=== PATIENT | female | born 1955 | race Caucasian/White ===

== ENCOUNTER 2020-02-29 19:27 | Inpatient (IN) | payer MEDICAID ==
[~2020-02-29] VITALS: Ht 157.5 cm; Wt 56.7 kg
[~2020-02-29 19:27] MED LIST: RISP1TAB27 PO; VALP250S23 PO
[2020-02-29 20:10] LABS: BASOPHILS % (AUTO) 1.1 % (0.0-2.0); HEMATOCRIT 39.4 % (36-46); HEMOGLOBIN 13.1 g/dL (12.0-16.0); LYMPHOCYTES % (AUTO) 25.1 % (22.0-44.0); MEAN CORPUSCULAR HEMOGLOBIN 29.4 pg (26.0-34.0); MEAN CORPUSCULAR HGB CONC 33.2 G/dL (31.0-37.0); MEAN CORPUSCULAR VOLUME 89 fL (80-100); MONOCYTES # (AUTO) 0.4 K/uL (0.1-1.0); MONOCYTES % (AUTO) 5.7 % (2.0-9.0); NEUTROPHILS # (AUTO) 5.2 K/uL (1.8-7.7); NEUTROPHILS % (AUTO) 67.1 % (40.0-70.0); PLATELET COUNT (AUTO) 246 K/uL (150-450); RED BLOOD CELL COUNT(AUTO) 4.44 MIL/uL (4.00-5.20); RED CELL DISTRIBUTION WIDTH 14.6 % (11.5-14.5)
[2020-02-29 20:32] LABS: ANION GAP 9 mmol/L (8-16); CALCIUM, TOTAL 9.4 mg/dL (8.8-10.5); CARBON DIOXIDE 30 mmol/L (22-29); CHLORIDE 104 mmol/L (98-107); CREATININE 0.94 mg/dL (0.60-1.30); GLOMERULAR FILTR. RATE CALC 60 mL/min (>60); GLUCOSE,RANDOM 105 mg/dL (70-110); POTASSIUM 3.4 mmol/L (3.5-5.1); SODIUM SERUM 143 mmol/L (136-145); UREA NITROGEN, BLOOD 16 mg/dL (7-18)
[2020-02-29 20:36] LABS: ALANINE AMINOTRANSFERASE 24 U/L (12-78); ALKALINE PHOSPHATASE 89 U/L (46-116); ASPARTATE AMINOTRANSFERASE 18 U/L (15-37); BILIRUBIN,TOTAL 0.3 mg/dL (0.1-1.0); TOTAL PROTEIN, SERUM 7.9 g/dL (6.4-8.2)
[2020-02-29 21:04] LABS: VALPROIC ACID < 3 mcg/mL (50-100)
[2020-02-29 21:25] LABS: AMPHET/METH SCREEN,URINE NEGATIVE (NEGATIVE); BARBITURATE SCREEN, URINE NEGATIVE (NEGATIVE); BENZODIAZEPINES SCREEN,URINE NEGATIVE (NEGATIVE); CANNABINOID SCREEN,URINE NEGATIVE (NEGATIVE); COCAINE SCREEN,URINE NEGATIVE (NEGATIVE); METHADONE SCREEN, URINE NEGATIVE (NEGATIVE); OPIATE SCREEN,URINE NEGATIVE (NEGATIVE)
[2020-02-29] MEDS ORDERED: ZOLPIDEM TARTRATE 10 MG TABLET PO PRN (21:30)
[2020-02-29] MEDS ORDERED: LORazepam 2 MG TABLET PO PRN (21:30)
[2020-02-29] MEDS ORDERED: HALOPERIDOL 5 MG TABLET PO PRN (21:30)
[2020-02-29 21:46] LABS: PHENCYCLIDINE SCREEN,URINE NEGATIVE (NEGATIVE)
[2020-03-01 02:40] VITALS: BP 124/77
[2020-03-01] MEDS ORDERED: ONDANSETRON HCL 4 MG TABLET PO PRN (06:45)
[2020-03-01] MEDS ORDERED: OMEPRAZOLE 20 MG CAPSULE PO PRN (06:45)
[2020-03-01] MEDS ORDERED: BENZOCAINE/MENTHOL LOZENGE MM PRN (06:45)
[2020-03-01] MEDS ORDERED: POTASSIUM CHLORIDE 20 MEQ ER TABLET PO ONE (06:45)
[2020-03-01] MEDS ORDERED: MAG HYDROX/AL HYDROX/SIMETH ES 30 ML SUSPENSION UDCUP PO PRN (06:45)
[2020-03-01] MEDS ORDERED: MAGNESIUM HYDROXIDE SUSPENSION 30 ML UDCUP PO PRN (06:45)
[2020-03-01] MEDS ORDERED: ALBUTEROL SULFATE HFA 90 MCG/PUFF 8 GM INHALER IH PRN (06:45)
[2020-03-01] MEDS ORDERED: DOCUSATE SODIUM 100 MG CAPSULE PO PRN (06:45)
[2020-03-01] MEDS ORDERED: CloNIDine HCL 0.1 MG TABLET PO PRN (06:45)
[2020-03-01] MEDS ORDERED: IBUPROFEN 600 MG TABLET PO PRN (06:45)
[2020-03-01] MEDS ORDERED: ACETAMINOPHEN 325 MG TABLET PO PRN (06:45)
[2020-03-01] MEDS ORDERED: LOPERAMIDE HCL 2 MG CAPSULE PO PRN (06:45)
[2020-03-01] MEDS ORDERED: BACITRACIN 28.4 GM OINTMENT TP PRN (06:45)
[2020-03-01] MEDS ORDERED: PETROLATUM,WHITE 28 GM JELLY TP PRN (06:45)
[2020-03-01] MEDS ORDERED: POTASSIUM CHLORIDE 10% 40 MEQ/30 ML LIQUID UDCUP PO ONE (07:30)
[2020-03-01 08:49] LABS: CHOL/HDL RATIO 4.1 (3.9-5.7)
[2020-03-01] MEDS: SERTRALINE HCL 50 MG TABLET PO SCH (12:09)
[2020-03-01 16:24] VITALS: BP 109/70
[2020-03-02 00:47] VITALS: BP 102/73
[2020-03-02 08:24] VITALS: BP 121/68
[2020-03-02] MEDS: SERTRALINE HCL 50 MG TABLET PO SCH (08:27)
[2020-03-02] MEDS: MULTIVITAMINS WITH MINERALS, THERAPEUTIC TABLET PO SCH (08:27)
[2020-03-02 16:11] VITALS: BP 110/65
[2020-03-02] MEDS: SIMVASTATIN 10 MG TABLET PO SCH (20:01)
[2020-03-03 04:56] VITALS: BP 110/69
[2020-03-03 08:31] VITALS: BP 116/70
[2020-03-03] MEDS: SERTRALINE HCL 50 MG TABLET PO SCH (08:39)
[2020-03-03] MEDS: MULTIVITAMINS WITH MINERALS, THERAPEUTIC TABLET PO SCH (08:39)
[2020-03-03 16:17] VITALS: BP 111/71
[2020-03-03] MEDS: SIMVASTATIN 10 MG TABLET PO SCH (20:41)
[2020-03-04 00:33] VITALS: BP 105/77
[2020-03-04 08:43] VITALS: BP 102/56
[2020-03-04] MEDS: SERTRALINE HCL 50 MG TABLET PO SCH (10:05)
[2020-03-04] MEDS: MULTIVITAMINS WITH MINERALS, THERAPEUTIC TABLET PO SCH (10:06)
[2020-03-04 16:25] VITALS: BP 100/62
[2020-03-04] MEDS: SIMVASTATIN 10 MG TABLET PO SCH (20:26)
[2020-03-05 00:24] VITALS: BP 101/74
[2020-03-05 08:24] VITALS: BP 104/61
[2020-03-05] MEDS: SERTRALINE HCL 50 MG TABLET PO SCH (08:58)
[2020-03-05] MEDS: MULTIVITAMINS WITH MINERALS, THERAPEUTIC TABLET PO SCH (08:58)
[2020-03-05 16:26] VITALS: BP 110/62
[2020-03-05] MEDS: SIMVASTATIN 10 MG TABLET PO SCH (20:46)
[2020-03-06 01:02] VITALS: BP 104/68
[2020-03-06] MEDS: MULTIVITAMINS WITH MINERALS, THERAPEUTIC TABLET PO SCH (08:12)
[2020-03-06] MEDS: SERTRALINE HCL 50 MG TABLET PO SCH (08:12)
[2020-03-06 08:24] VITALS: BP 110/73
[2020-03-06 16:13] VITALS: BP 106/66
[2020-03-06] MEDS: SIMVASTATIN 10 MG TABLET PO SCH (20:54)
[2020-03-07 04:18] VITALS: BP 112/70
[2020-03-07 08:17] VITALS: BP 118/62
[2020-03-07] MEDS: SERTRALINE HCL 50 MG TABLET PO SCH (08:25)
[2020-03-07] MEDS: MULTIVITAMINS WITH MINERALS, THERAPEUTIC TABLET PO SCH (08:25)
[2020-03-07 16:18] VITALS: BP 100/64
[2020-03-07] MEDS: SIMVASTATIN 10 MG TABLET PO SCH (20:21)
[2020-03-08 03:49] VITALS: BP 104/72
[2020-03-08] MEDS ORDERED: SERT20OR6 PO (05:39)
[2020-03-08] MEDS ORDERED: SIMV5TAB58 PO (05:39)
== END 2020-03-08 07:30 | disposition home or self-care (01) | DRG 881 ==
LOC: EMS 19:32 → UNDOADMIN 21:17 → 3EI 21:17 → B3A 21:17 → 3EI 21:58 → UNDOADMIN 21:58
PROVIDERS: ADMIT Psychiatry & Neurology Psychiatry; ATTEND Psychiatry & Neurology Psychiatry
DX: F32.9 Major depressive disorder, single episode, unspecified (principal); R45.851 Suicidal ideations; K21.9 Gastro-esophageal reflux disease without esophagitis; F41.9 Anxiety disorder, unspecified; Z59.0 Homelessness; Z20.828 Contact with and (suspected) exposure to other viral communicable diseases; E11.9 Type 2 diabetes mellitus without complications; E78.5 Hyperlipidemia, unspecified; E78.00 Pure hypercholesterolemia, unspecified; E87.6 Hypokalemia; E55.9 Vitamin D deficiency, unspecified; F20.9 Schizophrenia, unspecified
CPT/HCPCS: 84132; 93005; G0480

== ENCOUNTER 2020-03-20 18:31 | Inpatient (IN) | payer MEDICAID ==
[~2020-03-20] VITALS: Ht 157.5 cm; Wt 56.3 kg
[~2020-03-20 18:31] MED LIST changes: -RISP1TAB27 PO; +SERT20OR6 PO; +SIMV5TAB58 PO; -VALP250S23 PO
[2020-03-20] MEDS ORDERED: LORazepam 1 MG TABLET PO ONE (19:15)
[2020-03-20 19:56] LABS: BASOPHILS % (AUTO) 0.6 % (0.0-2.0); HEMATOCRIT 41.4 % (36-46); HEMOGLOBIN 13.8 g/dL (12.0-16.0); LYMPHOCYTES # (AUTO) 2.2 K/uL (1.0-4.8); LYMPHOCYTES % (AUTO) 28.8 % (22.0-44.0); MEAN CORPUSCULAR HEMOGLOBIN 29.2 pg (26.0-34.0); MEAN CORPUSCULAR HGB CONC 33.2 G/dL (31.0-37.0); MEAN CORPUSCULAR VOLUME 88 fL (80-100); MONOCYTES # (AUTO) 0.4 K/uL (0.1-1.0); MONOCYTES % (AUTO) 5.5 % (2.0-9.0); NEUTROPHILS # (AUTO) 4.8 K/uL (1.8-7.7); NEUTROPHILS % (AUTO) 64.1 % (40.0-70.0); PLATELET COUNT (AUTO) 241 K/uL (150-450); RED BLOOD CELL COUNT(AUTO) 4.71 MIL/uL (4.00-5.20); RED CELL DISTRIBUTION WIDTH 14.5 % (11.5-14.5)
[2020-03-20 20:10] LABS: ANION GAP 7 mmol/L (8-16); CALCIUM, TOTAL 9.1 mg/dL (8.8-10.5); CARBON DIOXIDE 29 mmol/L (22-29); CHLORIDE 106 mmol/L (98-107); CREATININE 1.09 mg/dL (0.60-1.30); GLOMERULAR FILTR. RATE CALC 51 mL/min (>60); GLUCOSE,RANDOM 94 mg/dL (70-110); POTASSIUM 3.9 mmol/L (3.5-5.1); SODIUM SERUM 142 mmol/L (136-145); UREA NITROGEN, BLOOD 18 mg/dL (7-18)
[2020-03-20 20:12] LABS: AMPHET/METH SCREEN,URINE NEGATIVE (NEGATIVE); BARBITURATE SCREEN, URINE NEGATIVE (NEGATIVE); BENZODIAZEPINES SCREEN,URINE NEGATIVE (NEGATIVE); CANNABINOID SCREEN,URINE NEGATIVE (NEGATIVE); COCAINE SCREEN,URINE NEGATIVE (NEGATIVE); METHADONE SCREEN, URINE NEGATIVE (NEGATIVE); OPIATE SCREEN,URINE NEGATIVE (NEGATIVE)
[2020-03-20 20:13] LABS: PHENCYCLIDINE SCREEN,URINE NEGATIVE (NEGATIVE)
[2020-03-20 20:18] LABS: ALANINE AMINOTRANSFERASE 18 U/L (12-78); ALBUMIN 3.8 g/dL (3.4-5.0); ALKALINE PHOSPHATASE 84 U/L (46-116); ASPARTATE AMINOTRANSFERASE 16 U/L (15-37); BILIRUBIN,TOTAL 0.1 mg/dL (0.1-1.0); TOTAL PROTEIN, SERUM 7.5 g/dL (6.4-8.2)
[2020-03-20] MEDS ORDERED: SERT50TA12 PO (20:38)
[2020-03-20] MEDS ORDERED: SIMV-259 PO (20:38)
[2020-03-20] MEDS ORDERED: HALOPERIDOL 5 MG TABLET PO PRN (20:45)
[2020-03-20] MEDS ORDERED: ZOLPIDEM TARTRATE 10 MG TABLET PO PRN (20:45)
[2020-03-20 21:55] VITALS: BP 123/72
[2020-03-21] MEDS ORDERED: BENZOCAINE/MENTHOL LOZENGE PO PRN (07:15)
[2020-03-21] MEDS ORDERED: IBUPROFEN 600 MG TABLET PO PRN (07:15)
[2020-03-21] MEDS ORDERED: ONDANSETRON HCL 4 MG TABLET PO PRN (07:15)
[2020-03-21] MEDS ORDERED: OMEPRAZOLE 20 MG CAPSULE PO PRN (07:15)
[2020-03-21] MEDS ORDERED: LOPERAMIDE HCL 2 MG CAPSULE PO PRN (07:15)
[2020-03-21] MEDS ORDERED: DOCUSATE SODIUM 100 MG CAPSULE PO PRN (07:15)
[2020-03-21] MEDS ORDERED: PETROLATUM,WHITE 28 GM JELLY TP PRN (07:15)
[2020-03-21] MEDS ORDERED: CloNIDine HCL 0.1 MG TABLET PO PRN (07:15)
[2020-03-21] MEDS ORDERED: BACITRACIN 28 GM OINTMENT TP PRN (07:15)
[2020-03-21] MEDS ORDERED: ALBUTEROL SULFATE HFA 90 MCG/PUFF 8 GM INHALER IH PRN (07:15)
[2020-03-21] MEDS ORDERED: MAG HYDROX/AL HYDROX/SIMETH ES 30 ML SUSPENSION UDCUP PO PRN (07:15)
[2020-03-21] MEDS ORDERED: MAGNESIUM HYDROXIDE SUSPENSION 30 ML UDCUP PO PRN (07:15)
[2020-03-21] MEDS ORDERED: ACETAMINOPHEN 325 MG TABLET PO PRN (07:15)
[2020-03-21 08:01] LABS: CHOL/HDL RATIO 2.9 (3.9-5.7)
[2020-03-21 08:36] VITALS: BP 110/61
[2020-03-21 16:00] VITALS: BP 116/76
[2020-03-21] MEDS: SIMVASTATIN 10 MG TABLET PO SCH (20:35)
[2020-03-21] MEDS ORDERED: SIMVASTATIN 10 MG TABLET PO SCH (21:00)
[2020-03-22 08:00] VITALS: BP 134/75
[2020-03-22] MEDS: SERTRALINE HCL 50 MG TABLET PO SCH (10:49)
[2020-03-22 16:00] VITALS: BP 109/75
[2020-03-22] MEDS: SIMVASTATIN 10 MG TABLET PO SCH (21:01)
[2020-03-23] MEDS: SERTRALINE HCL 50 MG TABLET PO SCH (08:53)
[2020-03-23 09:00] VITALS: BP 103/64
[2020-03-23 16:34] VITALS: BP 114/73
[2020-03-23] MEDS: SIMVASTATIN 10 MG TABLET PO SCH (20:38)
[2020-03-24 04:21] VITALS: BP 129/86
[2020-03-24 08:31] VITALS: BP 129/82
[2020-03-24] MEDS: SERTRALINE HCL 50 MG TABLET PO SCH (10:23)
[2020-03-24 16:30] VITALS: BP 108/65
[2020-03-24] MEDS: SIMVASTATIN 10 MG TABLET PO SCH (20:27)
[2020-03-25 08:34] VITALS: BP 116/73
[2020-03-25] MEDS: SERTRALINE HCL 50 MG TABLET PO SCH (10:58)
[2020-03-25 16:48] VITALS: BP 126/85
[2020-03-25] MEDS: SIMVASTATIN 10 MG TABLET PO SCH (20:38)
[2020-03-26 08:56] VITALS: BP 119/66
[2020-03-26] MEDS: SERTRALINE HCL 50 MG TABLET PO SCH (09:22)
[2020-03-26] MEDS: LORazepam 1 MG TABLET PO PRN (13:38)
[2020-03-26 17:25] VITALS: BP 111/68
[2020-03-26] MEDS: SIMVASTATIN 10 MG TABLET PO SCH (20:29)
[2020-03-27] MEDS: LORazepam 1 MG TABLET PO PRN (09:04)
[2020-03-27] MEDS: SERTRALINE HCL 50 MG TABLET PO SCH (09:04)
[2020-03-27 09:42] VITALS: BP 122/79
[2020-03-27 16:00] VITALS: BP 100/67
[2020-03-27] MEDS: SIMVASTATIN 10 MG TABLET PO SCH (20:32)
[2020-03-28 09:36] VITALS: BP 117/74
[2020-03-28] MEDS: SERTRALINE HCL 50 MG TABLET PO SCH (10:05)
[2020-03-28] MEDS: LORazepam 1 MG TABLET PO PRN (10:26)
[2020-03-28 19:11] VITALS: BP 110/78
[2020-03-28] MEDS: SIMVASTATIN 10 MG TABLET PO SCH (20:41)
[2020-03-29 07:04] LABS: BASOPHILS % (AUTO) 0.7 % (0.0-2.0); HEMATOCRIT 41.2 % (36-46); HEMOGLOBIN 13.3 g/dL (12.0-16.0); LYMPHOCYTES # (AUTO) 2.2 K/uL (1.0-4.8); LYMPHOCYTES % (AUTO) 36.7 % (22.0-44.0); MEAN CORPUSCULAR HEMOGLOBIN 28.4 pg (26.0-34.0); MEAN CORPUSCULAR HGB CONC 32.2 G/dL (31.0-37.0); MEAN CORPUSCULAR VOLUME 88 fL (80-100); MONOCYTES # (AUTO) 0.4 K/uL (0.1-1.0); MONOCYTES % (AUTO) 7.4 % (2.0-9.0); NEUTROPHILS # (AUTO) 3.1 K/uL (1.8-7.7); NEUTROPHILS % (AUTO) 53.2 % (40.0-70.0); PLATELET COUNT (AUTO) 219 K/uL (150-450); RED BLOOD CELL COUNT(AUTO) 4.67 MIL/uL (4.00-5.20); RED CELL DISTRIBUTION WIDTH 14.2 % (11.5-14.5)
[2020-03-29 07:32] LABS: ALANINE AMINOTRANSFERASE 25 U/L (12-78); ALBUMIN 3.4 g/dL (3.4-5.0); ALKALINE PHOSPHATASE 76 U/L (46-116); ANION GAP 5 mmol/L (8-16); ASPARTATE AMINOTRANSFERASE 18 U/L (15-37); BILIRUBIN,TOTAL 0.3 mg/dL (0.1-1.0); CALCIUM, TOTAL 9.1 mg/dL (8.8-10.5); CARBON DIOXIDE 29 mmol/L (22-29); CHLORIDE 107 mmol/L (98-107); CREATININE 0.83 mg/dL (0.60-1.30); GLOMERULAR FILTR. RATE CALC > 60 mL/min (>60); GLUCOSE,RANDOM 87 mg/dL (70-110); PHOSPHORUS 3.5 mg/dL (2.5-4.9); POTASSIUM 4.5 mmol/L (3.5-5.1); SODIUM SERUM 141 mmol/L (136-145); TOTAL PROTEIN, SERUM 7.1 g/dL (6.4-8.2); UREA NITROGEN, BLOOD 19 mg/dL (7-18)
[2020-03-29 08:55] VITALS: BP 106/55
[2020-03-29] MEDS: SERTRALINE HCL 50 MG TABLET PO SCH (09:53)
[2020-03-29 16:00] VITALS: BP 130/81
[2020-03-29] MEDS: SIMVASTATIN 10 MG TABLET PO SCH (21:25)
[2020-03-30 08:51] VITALS: BP 103/61
[2020-03-30] MEDS: LORazepam 1 MG TABLET PO PRN (09:22)
[2020-03-30] MEDS: SERTRALINE HCL 50 MG TABLET PO SCH (09:22)
[2020-03-30 16:00] VITALS: BP 119/66
[2020-03-30] MEDS: SIMVASTATIN 10 MG TABLET PO SCH (20:52)
[2020-03-31] MEDS ORDERED: SERT50TA12 PO (07:48)
[2020-03-31] MEDS: SERTRALINE HCL 50 MG TABLET PO SCH (08:47)
[2020-03-31 09:34] VITALS: BP 102/62
== END 2020-03-31 09:45 | DRG 750 ==
LOC: EMS 18:31 → 3EI 20:31
PROVIDERS: ADMIT Psychiatry & Neurology Psychiatry; ATTEND Psychiatry & Neurology Psychiatry
DX: F25.1 Schizoaffective disorder, depressive type (principal); R45.851 Suicidal ideations; F31.9 Bipolar disorder, unspecified; F41.9 Anxiety disorder, unspecified; E78.5 Hyperlipidemia, unspecified; K21.9 Gastro-esophageal reflux disease without esophagitis; E78.00 Pure hypercholesterolemia, unspecified; E55.9 Vitamin D deficiency, unspecified; E11.9 Type 2 diabetes mellitus without complications; Z20.828 Contact with and (suspected) exposure to other viral communicable diseases; Z79.899 Other long term (current) drug therapy
CPT/HCPCS: 83735; 84100; 87081; 87426; 93005; G0480

== ENCOUNTER 2021-02-23 14:34 | Inpatient (IN) | payer BC, MEDICAID, OTHER ==
[~2021-02-23] VITALS: Ht 157.5 cm; Wt 57.8 kg
[~2021-02-23 14:34] MED LIST changes: +SERT-439 PO; -SERT20OR6 PO; +SIMV-259 PO; -SIMV5TAB58 PO
[2021-02-23 16:10] LABS: BASOPHILS % (AUTO) 0.8 % (0.0-2.0); EOSINOPHILS % (AUTO) 2.1 % (1.0-6.0); HEMOGLOBIN 13.6 g/dL (12.0-16.0); LYMPHOCYTES # (AUTO) 1.7 K/uL (1.0-4.8); LYMPHOCYTES % (AUTO) 23.3 % (22.0-44.0); MEAN CORPUSCULAR HEMOGLOBIN 29.5 pg (26.0-34.0); MEAN CORPUSCULAR HGB CONC 32.4 G/dL (31.0-37.0); MEAN CORPUSCULAR VOLUME 91 fL (80-100); MONOCYTES # (AUTO) 0.6 K/uL (0.1-1.0); MONOCYTES % (AUTO) 7.8 % (2.0-9.0); NEUTROPHILS # (AUTO) 4.7 K/uL (1.8-7.7); PLATELET COUNT (AUTO) 256 K/uL (150-450); RED BLOOD CELL COUNT(AUTO) 4.61 MIL/uL (4.00-5.20); RED CELL DISTRIBUTION WIDTH 14.8 % (11.5-14.5)
[2021-02-23 16:31] LABS: ANION GAP 4 mmol/L (8-16); CALCIUM, TOTAL 9.2 mg/dL (8.8-10.5); CARBON DIOXIDE 29 mmol/L (22-29); CHLORIDE 107 mmol/L (98-107); CREATININE 0.82 mg/dL (0.60-1.30); GLOMERULAR FILTR. RATE CALC > 60 mL/min (>60); GLUCOSE,RANDOM 98 mg/dL (70-110); POTASSIUM 3.6 mmol/L (3.5-5.1); SODIUM SERUM 140 mmol/L (136-145); UREA NITROGEN, BLOOD 11 mg/dL (7-18)
[2021-02-23 16:32] LABS: SALICYLATE < 2.8 mg/dL (2.8-20.0)
[2021-02-23 16:36] LABS: ALANINE AMINOTRANSFERASE 22 U/L (12-78); ALKALINE PHOSPHATASE 90 U/L (46-116); ASPARTATE AMINOTRANSFERASE 20 U/L (15-37); BILIRUBIN,TOTAL 0.4 mg/dL (0.1-1.0); TOTAL PROTEIN, SERUM 7.4 g/dL (6.4-8.2)
[2021-02-23 16:37] LABS: ACETAMINOPHEN < 2 mcg/mL (10-30)
[2021-02-23 19:57] LABS: COVID AG,FIA SOURCE NASAL SWAB
[2021-02-23 20:24] LABS: APPEARANCE,URINE CLOUDY (CLEAR); BILIRUBIN,URINE NEGATIVE (NEGATIVE); GLUCOSE, URINE (UA) NEGATIVE (NEGATIVE); KETONES,URINE NEGATIVE (NEGATIVE); LEUKOCYTE ESTERASE ,URINE SMALL (NEGATIVE); NITRATE,URINE NEGATIVE (NEGATIVE); OCCULT BLOOD,URINE NEGATIVE (NEGATIVE); PROTEIN,URINE NEGATIVE (NEGATIVE); UROBILINOGEN,URINE 0.2 mg/dL (<=1.0)
[2021-02-23] MEDS ORDERED: HALOPERIDOL 5 MG TABLET PO PRN (20:30)
[2021-02-23] MEDS ORDERED: ZOLPIDEM TARTRATE 10 MG TABLET PO PRN (20:30)
[2021-02-23 20:48] LABS: AMPHET/METH SCREEN,URINE NEGATIVE (NEGATIVE); BARBITURATE SCREEN, URINE NEGATIVE (NEGATIVE); BENZODIAZEPINES SCREEN,URINE NEGATIVE (NEGATIVE); CANNABINOID SCREEN,URINE NEGATIVE (NEGATIVE); COCAINE SCREEN,URINE NEGATIVE (NEGATIVE); METHADONE SCREEN, URINE NEGATIVE (NEGATIVE); OPIATE SCREEN,URINE NEGATIVE (NEGATIVE)
[2021-02-23 20:50] LABS: PHENCYCLIDINE SCREEN,URINE NEGATIVE (NEGATIVE)
[2021-02-23 21:29] LABS: BACTERIA,URINE Rare /HPF (None Seen); RBC,URINE None Seen /HPF (0-2); SQUAMOUS EPITHELIAL CELL,UR Few /LPF (None Seen)
[2021-02-23 21:30] LABS: CALCIUM OXALATE CRYSTALS,UR Many /LPF (None Seen)
[2021-02-24 00:48] VITALS: BP 134/90
[2021-02-24 07:45] LABS: CHOL/HDL RATIO 3.5 (3.9-5.7)
[2021-02-24 08:27] VITALS: BP 126/76
[2021-02-24 16:23] VITALS: BP 110/85
[2021-02-24] MEDS: SIMVASTATIN 10 MG TABLET PO SCH (20:22)
[2021-02-24] MEDS: LORazepam 2 MG TABLET PO PRN (20:23)
[2021-02-25 00:19] VITALS: BP 132/70
[2021-02-25 08:54] VITALS: BP 114/61
[2021-02-25 16:13] VITALS: BP 134/88
[2021-02-25] MEDS: SIMVASTATIN 10 MG TABLET PO SCH (20:22)
[2021-02-26 06:29] VITALS: BP 137/79
[2021-02-26 08:20] VITALS: BP 120/77
[2021-02-26 16:22] VITALS: BP 132/73
[2021-02-26] MEDS: SIMVASTATIN 10 MG TABLET PO SCH (20:14)
[2021-02-27 00:12] VITALS: BP 114/67
[2021-02-27 08:24] VITALS: BP 135/75
[2021-02-27 12:01] VITALS: BP 135/75
[2021-02-27 16:15] VITALS: BP 115/75
[2021-02-27] MEDS: SIMVASTATIN 10 MG TABLET PO SCH (20:37)
[2021-02-28 00:13] VITALS: BP 129/77
[2021-02-28 08:16] VITALS: BP 107/85
[2021-02-28] MEDS: SERTRALINE HCL 50 MG TABLET PO SCH (11:23)
[2021-02-28 16:11] VITALS: BP 119/76
[2021-02-28] MEDS: SIMVASTATIN 10 MG TABLET PO SCH (20:54)
[2021-03-01 01:21] VITALS: BP 123/77
[2021-03-01 08:16] VITALS: BP 128/67
[2021-03-01] MEDS: SERTRALINE HCL 50 MG TABLET PO SCH (08:29)
[2021-03-01 13:46] LABS: GLUCOMETER DEV NAME(LOC) POC.BV
[2021-03-01 16:17] VITALS: BP 117/70
[2021-03-01] MEDS: SIMVASTATIN 10 MG TABLET PO SCH (20:58)
[2021-03-02 01:05] VITALS: BP 131/74
[2021-03-02] MEDS: SERTRALINE HCL 50 MG TABLET PO SCH (08:33)
[2021-03-02 08:58] VITALS: BP 120/74
[2021-03-02 16:19] VITALS: BP 135/73
[2021-03-02] MEDS: SIMVASTATIN 10 MG TABLET PO SCH (20:15)
[2021-03-02] MEDS ORDERED: CloNIDine HCL 0.1 MG TABLET PO PRN (21:30)
[2021-03-02] MEDS ORDERED: PETROLATUM,WHITE 28 GM JELLY TP PRN (21:30)
[2021-03-02] MEDS ORDERED: DOCUSATE SODIUM 100 MG CAPSULE PO PRN (21:30)
[2021-03-02] MEDS ORDERED: ONDANSETRON HCL 4 MG TABLET PO PRN (21:30)
[2021-03-02] MEDS ORDERED: LOPERAMIDE HCL 2 MG CAPSULE PO PRN (21:30)
[2021-03-02] MEDS ORDERED: OMEPRAZOLE 20 MG CAPSULE PO PRN (21:30)
[2021-03-02] MEDS ORDERED: ACETAMINOPHEN 325 MG TABLET PO PRN (21:30)
[2021-03-02] MEDS ORDERED: BACITRACIN 28 GM OINTMENT TP PRN (21:30)
[2021-03-02] MEDS ORDERED: BENZOCAINE/MENTHOL LOZENGE PO PRN (21:30)
[2021-03-02] MEDS ORDERED: MAG HYDROX/AL HYDROX/SIMETH ES 30 ML SUSPENSION UDCUP PO PRN (21:30)
[2021-03-02] MEDS ORDERED: ALBUTEROL SULFATE HFA 90 MCG/PUFF 8 GM INHALER IH PRN (21:30)
[2021-03-02] MEDS ORDERED: MAGNESIUM HYDROXIDE SUSPENSION 30 ML UDCUP PO PRN (21:30)
[2021-03-02] MEDS ORDERED: IBUPROFEN 600 MG TABLET PO PRN (21:30)
[2021-03-03 00:26] VITALS: BP 123/76
[2021-03-03] MEDS: SERTRALINE HCL 50 MG TABLET PO SCH (08:25)
[2021-03-03 08:56] VITALS: BP 103/62
[2021-03-03 16:13] VITALS: BP 138/76
[2021-03-03] MEDS: SIMVASTATIN 10 MG TABLET PO SCH (20:05)
[2021-03-04 06:20] VITALS: BP 122/64
[2021-03-04 08:26] VITALS: BP 127/85
[2021-03-04] MEDS: SERTRALINE HCL 50 MG TABLET PO SCH (08:30)
[2021-03-04 16:11] VITALS: BP 133/90
[2021-03-04] MEDS: SIMVASTATIN 10 MG TABLET PO SCH (20:11)
[2021-03-05 06:10] VITALS: BP 152/93
[2021-03-05] MEDS: LORazepam 2 MG TABLET PO PRN (06:17)
[2021-03-05] MEDS: SERTRALINE HCL 50 MG TABLET PO SCH (08:27)
[2021-03-05 08:37] VITALS: BP 115/69
[2021-03-05 08:39] VITALS: BP 115/69
[2021-03-05 16:16] VITALS: BP 135/80
[2021-03-05] MEDS: SIMVASTATIN 10 MG TABLET PO SCH (20:20)
[2021-03-06 05:50] VITALS: BP 138/78
[2021-03-06] MEDS: SERTRALINE HCL 50 MG TABLET PO SCH (08:22)
[2021-03-06 08:23] VITALS: BP 142/82
[2021-03-06] MEDS ORDERED: SERT-158 PO (11:38)
[2021-03-06] MEDS ORDERED: SIMV-259 PO (11:39)
== END 2021-03-06 13:15 | disposition home or self-care (01) | DRG 750 ==
LOC: EMS 14:34 → B2S 20:42
PROVIDERS: ADMIT Psychiatry & Neurology Psychiatry; ATTEND Psychiatry & Neurology Psychiatry
DX: F25.1 Schizoaffective disorder, depressive type (principal); E11.9 Type 2 diabetes mellitus without complications; R45.851 Suicidal ideations; E78.00 Pure hypercholesterolemia, unspecified; Z20.822 Contact with and (suspected) exposure to COVID-19; E78.5 Hyperlipidemia, unspecified; F41.9 Anxiety disorder, unspecified; K21.9 Gastro-esophageal reflux disease without esophagitis; N95.9 Unspecified menopausal and perimenopausal disorder; F19.10 Other psychoactive substance abuse, uncomplicated; K59.00 Constipation, unspecified; G47.00 Insomnia, unspecified
CPT/HCPCS: 80053; 80061; 81001; 85025; 99285; G0480; G0481